=== PATIENT | female | born 1965 | race Caucasian/White ===

== ENCOUNTER 2018-01-02 11:12 | Outpatient (CLI) | payer OTHER ==
[~2018-01-02 11:12] MED LIST: COZAAR50 MG PO; SYNTHROID137 MCG PO; SYNTHROID200 MCG; VYTORIN 10/20 M1 TAB PO; ZOCOR5 MG
== END 2018-01-02 11:51 | disposition home or self-care (01) ==
LOC: SONOGRAMA 11:12
DX: N64.59 Other signs and symptoms in breast (principal)

== ENCOUNTER 2018-04-17 12:49 | Outpatient (CLI) | payer OTHER | END 2018-04-17 13:02 | disposition home or self-care (01) | LOC: RAD 12:49 | DX: M99.01 Segmental and somatic dysfunction of cervical region (principal); M99.02 Segmental and somatic dysfunction of thoracic region; M99.03 Segmental and somatic dysfunction of lumbar region ==

== ENCOUNTER 2018-08-27 10:12 | Outpatient (CLI) | payer OTHER | END 2018-08-27 10:17 | disposition home or self-care (01) | LOC: RAD 10:12 | DX: R07.89 Other chest pain (principal); Z01.818 Encounter for other preprocedural examination ==

== ENCOUNTER 2018-12-16 14:46 | Outpatient (CLI) | payer OTHER | END 2018-12-16 15:00 | disposition home or self-care (01) | LOC: NUCLEAR 14:46 | DX: M81.0 Age-related osteoporosis without current pathological fracture (principal) ==

== ENCOUNTER 2019-02-11 10:32 | Outpatient (CLI) | payer OTHER | END 2019-02-11 17:22 | disposition home or self-care (01) | LOC: RAD 10:32 | DX: M15.8 Other polyosteoarthritis (principal) ==

== ENCOUNTER → 2019-04-16 | Outpatient (CLI) | payer OTHER | END | disposition home or self-care (01) | LOC: NUCLEAR 09:00 | DX: I87.2 Venous insufficiency (chronic) (peripheral) (principal) ==

== ENCOUNTER 2019-07-07 01:14 | Emergency (ER) | payer OTHER ==
[~2019-07-07] VITALS: Ht 162.6 cm; Wt 61.2 kg
[2019-07-07] MEDS ORDERED: NEURONTIN300 MG (01:31)
[2019-07-07] MEDS ORDERED: ASA-EC81 MG PO (03:29)
== END 2019-07-07 03:39 | disposition home or self-care (01) ==
LOC: ER 01:14
DX: I86.8 Varicose veins of other specified sites (principal)

== ENCOUNTER 2019-08-31 17:05 | Outpatient (CLI) | payer OTHER ==
[~2019-08-31 17:05] MED LIST changes: +ASA-EC81 MG PO; +NEURONTIN300 MG
== END 2019-08-31 18:00 | disposition home or self-care (01) ==
LOC: RAD 17:05
DX: M15.8 Other polyosteoarthritis (principal)

== ENCOUNTER 2021-06-27 16:26 | Outpatient (CLI) | payer OTHER | END 2021-06-27 16:36 | disposition home or self-care (01) | LOC: RAD 16:26 | DX: M25.562 Pain in left knee (principal); M17.12 Unilateral primary osteoarthritis, left knee; M25.561 Pain in right knee ==

== ENCOUNTER 2021-07-02 11:09 | Outpatient (CLI) | payer OTHER | END 2021-07-02 11:26 | disposition home or self-care (01) | LOC: MAMO-SONO 11:09 | PROVIDERS: ATTEND Obstetrics & Gynecology | DX: N60.11 Diffuse cystic mastopathy of right breast (principal); N60.12 Diffuse cystic mastopathy of left breast; Z12.31 Encounter for screening mammogram for malignant neoplasm of breast ==

== ENCOUNTER 2021-08-07 13:49 | Outpatient (CLI) | payer OTHER | END 2021-08-07 14:13 | disposition home or self-care (01) | LOC: RAD 13:49 | PROVIDERS: ATTEND Podiatrist Foot Surgery | DX: G57.62 Lesion of plantar nerve, left lower limb (principal); M20.42 Other hammer toe(s) (acquired), left foot ==

== ENCOUNTER 2023-04-29 10:24 | Outpatient (CLI) | payer OTHER | END 2023-04-29 10:42 | disposition home or self-care (01) | LOC: MAMO-SONO 10:24 | PROVIDERS: ATTEND Obstetrics & Gynecology | DX: R10.2 Pelvic and perineal pain (principal); N60.11 Diffuse cystic mastopathy of right breast; N60.12 Diffuse cystic mastopathy of left breast; Z12.31 Encounter for screening mammogram for malignant neoplasm of breast ==

== ENCOUNTER 2023-08-12 12:21 | Outpatient (CLI) | payer OTHER | END 2023-08-12 12:22 | disposition home or self-care (01) | LOC: RAD 12:21 | PROVIDERS: ATTEND Internal Medicine Rheumatology | DX: M15.8 Other polyosteoarthritis (principal) ==

== ENCOUNTER 2023-11-12 11:21 | Outpatient (CLI) | payer OTHER | END 2023-11-12 11:29 | disposition home or self-care (01) | LOC: SONOGRAMA 11:21 | PROVIDERS: ATTEND Internal Medicine Rheumatology | DX: R10.2 Pelvic and perineal pain (principal); D25.9 Leiomyoma of uterus, unspecified ==

== ENCOUNTER 2024-11-03 07:33 | Outpatient (CLI) | payer OTHER | END 2024-11-03 07:34 | disposition home or self-care (01) | LOC: MAMO-SONO 07:33 | PROVIDERS: ATTEND Obstetrics & Gynecology | DX: N60.11 Diffuse cystic mastopathy of right breast (principal); N60.12 Diffuse cystic mastopathy of left breast; Z12.31 Encounter for screening mammogram for malignant neoplasm of breast ==

== ENCOUNTER 2025-02-11 09:11 | Outpatient (CLI) | payer OTHER | END 2025-02-11 09:15 | disposition home or self-care (01) | LOC: RAD 09:11 | DX: M17.0 Bilateral primary osteoarthritis of knee (principal) ==

== ENCOUNTER 2025-02-28 09:03 | Outpatient (CLI) | payer OTHER | END 2025-02-28 09:07 | disposition home or self-care (01) | LOC: RAD 09:03 | DX: M51.369 Other intervertebral disc degeneration, lumbar region without mention of lumbar back pain or lower extremity pain (principal) ==

== ENCOUNTER 2025-08-29 09:35 | Outpatient (CLI) | payer OTHER | END 2025-08-29 09:36 | disposition home or self-care (01) | LOC: SONOGRAMA 09:35 | PROVIDERS: ATTEND Pathology Anatomic Pathology | DX: D11.0 Benign neoplasm of parotid gland (principal); R22.1 Localized swelling, mass and lump, neck ==